=== PATIENT | female | born 1980 | race Caucasian/White ===

== ENCOUNTER 2018-04-29 13:55 | Day surgery (SDC) | payer OTHER, MEDICAID, SELFPAY ==
--- NOTE | 2018-04-29 | PATH_ITS ---
[facility] Accession Number: [id number] . 01 Material submitted: . DUODENUM BIOPSY . 01 Clinical history: . DUODENUM BIOPSY TO R/O CELIAC . 02 Diagnosis: Duodenum, Biopsy: Duodenal mucosa with no diagnostic abnormality. Negative for active inflammation, features of sprue, dysplasia or malignancy. MRV/04/30/2018 . 02 Electronically signed: . Deangelo Valderrama MD, PhD, Pathologist NPI- [id number] . 01 Gross description: . Received one formalin-filled container labeled with the patient's name and labeled duodenum. The specimen consists of a 0.3 cm portion of tissue, entirely submitted in one cassette. ([id number]) /FRR . 02 Pathologist provided ICD-10: R19.7, R10.9 . 02 CPT . 274743 Specimen Comment: A duplicate report has been generated due to demographic updates. Performed at: 01 [facility] [address] [place] [address], [place], [place] [id number] MD Harshil Dinh MD Phone: [phone] Performed at: 02 [facility] [address] [place], [place] [id number] MD Gaye Alvarez MD Phone: [phone]
[2018-04-29 14:44] VITALS: BMI 43.9
[2018-04-29 15:17] VITALS: BP 148/94; PULSE 92; RESP 16; TEMP 36.3; O2SAT 95
[2018-04-29] MEDS: SODIUM CHLORIDE 0.9% 1,000 ML 200 ML IV (15:21)
--- NOTE | 2018-04-29 15:35 | PM.PREOP ---
Pre-operative Note Interval Note Pre-op Check: Yes History & Physical Reviewed by Physician and Yes Exam Performed Changes: No ASA Class (for procedural sedation): III
--- NOTE | 2018-04-29 15:35 | PM.OP.ENDO ---
Operative Date/Time/Diagnoses Date of procedure: 04/29/18 Time of procedure: 15:36 Pre-op diagnosis: See indication and findings Post-op diagnosis: same Procedure & Clinicians Study performed: EGD Same procedure as scheduled: Yes Indications: Poorly controlled GE reflux. Rule out esophagitis. Rule out Rubin's esophagus. Surgeon: Sofia Ramirez Procedure Notes Procedure in detail: After informed consent was obtained the patient was placed in left lateral decubitus position. The video upper scope was placed into the oropharynx with the patient was told in the esophagus. The esophagus stomach and duodenum were carefully examined. On withdrawal, retroflexed view the GE junction was performed. The scope was removed. The patient tolerated the procedure well. Blood loss none Complications none Sedation: Mac by anesthesia Findings 1. Normal GE junction. There was no clear evidence of tongues of abnormal tissue above the top level of the GE folds. There was also no evidence of esophagitis. 2. Normal stomach 3. Normal duodenal bulb and sweep. Biopsies taken to rule out celiac She is actually doing remarkably well using ranitidine 300 mg q.h.s.. This really is cut down on her nocturnal acid breakthrough. She should stay on it for the time being along with omeprazole in the morning and we will touch base with her regarding the biopsies from her duodenum. The she should return to see us in 6 months.
[2018-04-29 16:00] VITALS: BP 106/73; PULSE 95; RESP 23; TEMP 36.3; O2SAT 95
[2018-04-29 16:05] VITALS: BP 117/69; PULSE 86; RESP 15; O2SAT 100
[2018-04-29 16:10] VITALS: BP 122/75; PULSE 87; RESP 17; TEMP 36.4; O2SAT 99
[2018-04-29 16:11] VITALS: BP 115/75; PULSE 89; RESP 20; TEMP 36.6; O2SAT 98
== END 2018-04-29 16:50 | disposition home or self-care (01) ==
PROVIDERS: PCP Nurse Practitioner; Visit Provider Internal Medicine Gastroenterology
PROC: 0DJ08ZZ Inspection of Upper Intestinal Tract, Via Natural or Artificial Opening Endoscopic (ICD-10-PCS; CPT 43235; principal; 2018-04-29 15:00)
DX: K21.9 Gastro-esophageal reflux disease without esophagitis (principal); E11.9 Type 2 diabetes mellitus without complications; I10 Essential (primary) hypertension; F41.9 Anxiety disorder, unspecified; E66.9 Obesity, unspecified; Z79.84 Long term (current) use of oral hypoglycemic drugs; F41.0 Panic disorder [episodic paroxysmal anxiety]; F31.9 Bipolar disorder, unspecified
CPT/HCPCS: 43239; J2250; J2704; J3010

== ENCOUNTER 2021-02-09 18:43 | Emergency (ER) | payer OTHER, MEDICAID, SELFPAY ==
[2021-02-09 19:10] VITALS: BP 157/85; PULSE 110; RESP 20; TEMP 37.2; O2SAT 98; BMI 50.0
[2021-02-09 20:28] VITALS: PULSE 99; RESP 20
[2021-02-09 20:30] VITALS: BP 148/93; PULSE 100; RESP 20
--- NOTE | 2021-02-09 20:38 | ED_ITS ---
HPI - General Adult General Chief complaint: Diabetic Problem Stated complaint: Blood Sugar Out of Control, Running in 300's Time Seen by Provider: 02/09/21 20:01 Mode of arrival: Ambulatory Limitations: no limitations History of Present Illness HPI narrative: 40-year-old female former smoker with history of type 2 diabetes on Victoza and insulin sliding scale presents feeling a bit fatigued and stress due to family issues. Her biggest concern is at her blood sugars which normally run in the 170s to 180s have been in the 300s this afternoon. She denies fever or chills. She denies any chest pain or shortness of breath. She has some mild nausea but denies any vomiting or abdominal pain. She denies dysuria, frequency or urgency. She denies any change in her diabetic regimen or any dietary indiscretions. Related Data Home Medications Medication Instructions Recorded Confirmed Advair Diskus 2 puff INHALATION BID 04/29/18 04/29/18 Chantix 1 mg PO BID 04/29/18 04/29/18 Geodon 20 mg PO DAILY 04/29/18 04/29/18 Humalog U-100 Insulin SUBCUT AC PRN 04/29/18 ProAir HFA puff INHALATION PRN 04/29/18 Victoza 2-Elias 1.8 mg DAILY 04/29/18 04/29/18 metformin 1,000 mg PO BID 04/29/18 04/29/18 zolpidem 10 mg PO BEDTIME PRN 04/29/18 04/29/18 Allergies Allergy/AdvReac Type Severity Reaction Status Date / Time Penicillins Allergy Hives Verified 04/29/18 15:06 Review of Systems Review of Systems Narrative: GENERAL: See HPI HEENT: Denies sinus pain, ear pain, sore throat, difficulty swallowing, dizziness. RESPIRATORY: Denies dyspnea, cough, wheezing, hemoptysis, sputum. CARDIOVASCULAR: Denies chest pain, palpitations, orthopnea, edema, GASTROINTESTINAL: See HPI : Denies dysuria, frequency, incontinence, hematuria, urinary retention. MUSCULOSKELETAL: denies weakness, joint pain, or bony pain SKIN: Denies rash, skin lesions, or other NEUROLOGIC: Denies weakness, headache, numbness, change in speech, confusion, se izures, incoordination. PSYCHIATRIC: No concerning psychosocial issues. 12 point review of systems is negative except for those stated above Patient History Social History household members: none Smoking Status: Former smoker Smoking Status: Former smoker Substance Use Type: does not use Exam Narrative Exam Narrative: GENERAL: [40] year old patient appears stated age. Well- developed patient, in mild distress. HEAD: Atraumatic. Normocephalic. EYES: Pupils equal round and reactive. Extraocular motions intact. No scleral i cterus. No injection or drainage. ENT: Nose without bleeding, purulent drainage. Throat without erythema, tonsillar hypertrophy or exudate. Airway patent. NECK: Trachea midline. Non tender CARDIOVASCULAR: Regular rate and rhythm without murmurs, gallops, or rubs. RESPIRATORY: Clear to auscultation. Breath sounds equal bilaterally. No wheezes, rales, or rhonchi. GASTROINTESTINAL: Soft and nontender EXTREMITIES: No edema or joint tenderness. BACK: Nontender without deformity or crepitance. No flank tenderness. NEURO: AOx3. SKIN: No rash or erythema of visible areas Initial Vital Signs Initial Vital Signs: Vital Signs Temperature 99 F 02/09/21 19:10 Pulse Rate 110 H 02/09/21 19:10 Respiratory Rate 20 02/09/21 19:10 Blood Pressure 157/85 H 02/09/21 19:10 Pulse Oximetry 98 02/09/21 19:10 Course Orders Ordered: ED Orders 02/09/21 20:15 Basic Metabolic Panel Stat Complete Blood Count AUTO DIFF Stat Hemoglobin A1C% w Est Avg Glu Stat 02/09/21 20:41 Urine Microscopic Stat Discontinued Medications Sodium Chloride (Normal Saline 0.9%) 1,000 mls @ 1,000 mls/hr IV BOLUS ONE Stop: 02/09/21 21:40 Last Infusion: 02/09/21 21:45 Dose: 0 mls/hr Documented by: Admin: 02/09/21 20:52 Dose: 1,000 mls/hr Documented by: JACKELIN Vital Signs Vital signs: Vital Signs - 8 hr 02/09/21 20:28 02/09/21 20:30 02/09/21 21:00 Pulse Rate 99 H 100 H 95 H Respiratory Rate 20 20 22 Blood Pressure 148/93 H 143/77 H 02/09/21 21:30 Pulse Rate 96 H Respiratory Rate 23 Blood Pressure 145/80 H Medical Decision Making Lab Data Result diagrams: 02/09/21 20:15 02/09/21 20:15 Labs: Lab Results 02/09/21 02/09/21 02/09/21 Range/Units 20:15 20:15 20:15 WBC 11.6 H (4.5-11.0) X10^3/uL RBC 4.75 (4.0-5.2) X10^6/uL Hgb 14.7 (12.0-16.0) g/dL Hct 43.5 (36-46) % MCV 91.5 (80-100) fL MCH 31.0 (26-34) PG MCHC 33.9 (30-36) % RDW 13.2 (11.6-14.8) % Plt Count 353 (150-400) X10^3/uL Neut % (Auto) 66.7 (50-75) % Lymph % (Auto) 20.1 L (25-40) % [place] % (Auto) 8.0 (3-14) % Eos % (Auto) 4.7 H (2-4) % Baso % (Auto) 0.5 (0-2) % Neut # (Auto) 7800 H (8401-7265) /uL Lymph # (Auto) 2300 (4757-4073) /uL [place] # (Auto) 900 (0-900) /uL Eos # (Auto) 500 H (0-450) /uL Baso # (Auto) 100 (0-100) /uL Sodium 137 (137-145) mmol/L Potassium 4.0 (3.4-5.1) mmol/L Chloride 104 (98-107) mmol/L Carbon Dioxide 27 (22-32) mmol/L BUN 15 (7-17) mg/dL Creatinine 0.59 (0.52-1.04) mg/dL Estimated GFR > 60.0 (>60) mL/min BUN/Creatinine Ratio 25.4 H (6-22) Glucose 161 H (70-100) mg/dL Hemoglobin A1c 6.8 H (4.0-6.0) % Calcium 9.1 (8.4-10.2) mg/dL Urine RBC (0-5/HPF) Urine WBC (0-5/HPF) Ur Squamous Epith Cells (0-5/HPF) Calcium Oxalate Crystal Urine Bacteria (None) Ur Culture Indicated? 02/09/21 Range/Units 20:41 WBC (4.5-11.0) X10^3/uL RBC (4.0-5.2) X10^6/uL Hgb (12.0-16.0) g/dL Hct (36-46) % MCV (80-100) fL MCH (26-34) PG MCHC (30-36) % RDW (11.6-14.8) % Plt Count (150-400) X10^3/uL Neut % (Auto) (50-75) % Lymph % (Auto) (25-40) % [place] % (Auto) (3-14) % Eos % (Auto) (2-4) % Baso % (Auto) (0-2) % Neut # (Auto) (7512-3852) /uL Lymph # (Auto) (0587-1848) /uL [place] # (Auto) (0-900) /uL Eos # (Auto) (0-450) /uL Baso # (Auto) (0-100) /uL Sodium (137-145) mmol/L Potassium (3.4-5.1) mmol/L Chloride (98-107) mmol/L Carbon Dioxide (22-32) mmol/L BUN (7-17) mg/dL Creatinine (0.52-1.04) mg/dL Estimated GFR (>60) mL/min BUN/Creatinine Ratio (6-22) Glucose (70-100) mg/dL Hemoglobin A1c (4.0-6.0) % Calcium (8.4-10.2) mg/dL Urine RBC 0-1/hpf (0-5/HPF) Urine WBC 0-1/hpf (0-5/HPF) Ur Squamous Epith Cells 1-5 /hpf (0-5/HPF) Calcium Oxalate Crystal Moderate H Urine Bacteria Occasional (0-1) (None) Ur Culture Indicated? Cult not indicated Point of Care Testing Glucose POC 176 Urine Dip Bedside Urine Glucose 100 mg/dl Bedside Urine Bilirubin - Negative Bedside Urine Ketone - Negative Urine Specific [place] 1.030 Bedside Urine Occult Blood +/- Bedside Urine pH 6 Bedside Urine Protein - Negative Bedside Urine Urobilinogen - Negative Bedside Urine Nitrite - Negative Bedside Urine Leukocytes - Negative Esterase Point of care testing: Point of Care Testing Glucose POC 176 Urine Dip Bedside Urine Glucose 100 mg/dl Bedside Urine Bilirubin - Negative Bedside Urine Ketone - Negative Urine Specific [place] 1.030 Bedside Urine Occult Blood +/- Bedside Urine pH 6 Bedside Urine Protein - Negative Bedside Urine Urobilinogen - Negative Bedside Urine Nitrite - Negative Bedside Urine Leukocytes - Negative Esterase MDM Narrative Medical decision making narrative: Patient with very reassuring physical exam and labs. Her blood sugars are in the 160s and 170s. She is well hydrated, feeling better after fluids. Tolerating orals. She has been given extensive return precautions and questions have been answered to her apparent satisfaction Discharge Plan Departure Patient Disposition: Home Clinical Impression: Acute hyperglycemia Instructions: DI for Diabetes Type 2 Activity Restrictions/Additional Instructions: *You have been diagnosed with [hyperglycemia] *What to do: *Please continue to take your regular medications as directed. [ ] New medication prescriptions sent to your pharmacy: [ ] [ ] New medication written as a paper prescription [x ] No new medications given *Please follow up with your primary care provider in 2-3 days, call for an appointment. Let them know you were seen in the Emergency Department and that we ask that you be seen in follow up. We will electronically transmit a record of today's note if your PCP is in our system *If you do not have a primary care provider please contact the [facility] Resource line at [phone]. They will ask some questions about your medical history and help get you set up with a doctor in the community. *Return to Emergency Department if you should have any new, worsening or concerning symptoms, such as [fever greater than 101 F, shaking chills, worsening pain, persistent vomiting or other bothersome symptoms] Prescriptions: No Action Advair Diskus 2 puff Inhalation BID RF: 0 Chantix 1 mg PO BID RF: 0 Geodon 20 mg PO DAILY RF: 0 Humalog U-100 Insulin subcut AC PRN (Reason: Hyperglycemia) RF: 0 ProAir HFA Inhalation PRN (Reason: Dyspnea) RF: 0 Victoza 2-Elias 1.8 mg DAILY RF: 0 metformin 1,000 mg PO BID RF: 0 zolpidem 10 mg PO BEDTIME PRN (Reason: Insomnia) RF: 0 Referrals: Sadie Real PA-C [Primary Care Provider] -
[2021-02-09 20:47] LABS: Add Manual Diff / Slide Review NO; Basophils Absolute Auto 100 /uL (0-100); Basophils Percent Auto 0.5 % (0-2); Eosinophils Absolute Auto 500 /uL (0-450); Eosinophils Percent Auto 4.7 % (2-4); Hematocrit 43.5 % (36-46); Hemoglobin 14.7 g/dL (12.0-16.0); Lymphocytes Absolute Auto 2300 /uL (1100-4500); Lymphocytes Percent Auto 20.1 % (25-40); Mean Corpuscular HGB Conc 33.9 % (30-36); Mean Corpuscular Volume 91.5 fL (80-100); Monocytes Absolute Auto 900 /uL (0-900); Neutrophils Absolute Auto 7800 /uL (1500-7000); Neutrophils Percent Auto 66.7 % (50-75); Platelet Count 353 X10^3/uL (150-400); Red Blood Cell Count 4.75 X10^6/uL (4.0-5.2); Red Cell Distribution Width 13.2 % (11.6-14.8); White Blood Cell Count 11.6 X10^3/uL (4.5-11.0)
[2021-02-09 20:52] LABS: Bacteria Urine Occasional (0-1); RBC Urine 0-1/HPF (0-5/HPF); Squamous Epithelial Cell Urine 1-5 /HPF (0-5/HPF); WBC Urine 0-1/HPF (0-5/HPF)
[2021-02-09] MEDS: SODIUM CHLORIDE 0.9% 1,000 ML 1000 ML IV (20:52)
[2021-02-09 20:53] LABS: Calcium Oxalate Crystals Urine Moderate; Culture Indicated Urine Cult Not Indicated
[2021-02-09 20:53] LABS: BUN Creatinine Ratio 25.4 (6-22); Blood Urea Nitrogen 15 mg/dL (7-17); Calcium 9.1 mg/dL (8.4-10.2); Carbon Dioxide 27 mmol/L (22-32); Chloride 104 mmol/L (98-107); Estimated Glomerular Filt Rate > 60.0 mL/min (>60); Glucose 161 mg/dL (70-100); HEMOLYSIS < 15 (0-50); Sodium 137 mmol/L (137-145)
[2021-02-09 21:00] VITALS: BP 143/77; PULSE 95; RESP 22
[2021-02-09 21:02] LABS: Hemoglobin A1C% w Est Avg Glu 6.8 % (4.0-6.0)
[2021-02-09 21:30] VITALS: BP 145/80; PULSE 96; RESP 23
== END 2021-02-09 21:51 | disposition home or self-care (01) ==
PROVIDERS: Emergency Provider Emergency Medicine; PCP Physician Assistant
DX: E11.65 Type 2 diabetes mellitus with hyperglycemia (principal); R11.0 Nausea
CPT/HCPCS: 80048; 81003; 81015; 82962; 83036; 85025; 96360; 99283; 99284

== ENCOUNTER 2021-08-05 20:43 | Emergency (ER) | payer OTHER, MEDICAID, SELFPAY ==
[2021-08-05 20:50] VITALS: BP 156/91; PULSE 112; RESP 22; TEMP 36.9; O2SAT 97
--- NOTE | 2021-08-05 20:59 | DI.US.S_ITS ---
PROCEDURE: US OB LIMITED INDICATIONS: SEVERE RLQ PAIN OUTSIDE/PRIOR DATING DATA: Last menstrual period (LMP): Unknown LMP-based estimated date of delivery (OLIVIA): Unknown. First dating scan (date and location): 08/05/2021. Estimated date of delivery (OLIVIA) from first dating scan: 01/03/2022. The calculations are made using the ultrasound OLIVIA of today. TECHNIQUE: Real-time scanning was performed of the fetus, with image documentation and biometric measurements. Endovaginal scanning: Not performed COMPARISON: None. FINDINGS: General: A single living intrauterine gestation is present. Presentation: Cephalic. Placenta: Placental position is anterior, without previa. Amniotic fluid index: 9.6 cm, normal range is 5-24 cm. Single deepest vertical pocket is 3.6 cm. heart rate: 152 beats per minute. Maternal cervical canal: 3.8 cm long. Normal lower limit is 2.5 cm. biometrics: Biparietal diameter: 4.0 cm, 18 weeks 1 day Head circumference: 15.1 cm, 18 weeks 1 day Abdominal circumference: 13.7 cm, 19 weeks 1 day Femur length: 2.7 cm, 18 weeks 1 day Clinically estimated gestational age: 18 weeks 3 days Composite gestational age from present scan: 18 weeks 3 days Estimated weight and percentile: Not calculated. Today is the 1st study. Other: Not applicable. IMPRESSION: Living 2nd trimester intrauterine with no sonographic evidence of complications. We strive to produce accurate, complete, and clear reports of imaging services. To assist us in improving patient care, this report was composed using standard report templates and voice recognition software. Therefore, it may contain abnormal punctuation, insertions and/or omissions. Occasional wrong-word or sound-alike substitutions may occur. Though we review the report and make efforts to correct it, we do recommend that the report be read carefully in proper context to recognize any text inaccuracies. Dictated by: Abundio Gates M.D. on 08/05/2021 at 22:10 Approved by: Abundio Gates M.D. on 08/05/2021 at 22:14
--- NOTE | 2021-08-05 21:03 | ED.ABDPAIN ---
HPI - Abdominal Pain General Chief Complaint: OB/Uterine Contractions Stated Complaint: 18 weeks preg. sharp pains on rt. lower abd. Time Seen by Provider: 08/05/21 20:50 Source: patient Mode of arrival: Ambulatory History of Present Illness HPI narrative: 41-year-old female daily smoker with history of insulin-dependent diabetes is a at 18 weeks and 2 days managed by [facility] at the [facility] and presents with a chief complaint of a relatively sudden onset right lower quadrant pain that started at 5:00 p.m. tonight. She states that she was grocery shopping but denies any heavy lifting, twisting or bending. She denies any obvious provocation, palliation or radiation. She denies fever chills nor nausea, vomiting or diarrhea. She denies diarrhea or constipation. She denies hematuria, dysuria, frequency or urgency. She has had no vaginal bleeding, discharge or leakage of fluid. Related Data Home Medications Medication Instructions Recorded Confirmed Advair Diskus 2 puff INHALATION BID 04/29/18 04/29/18 Chantix 1 mg PO BID 04/29/18 04/29/18 Geodon 20 mg PO DAILY 04/29/18 04/29/18 Humalog U-100 Insulin SUBCUT AC PRN 04/29/18 ProAir HFA puff INHALATION PRN 04/29/18 Victoza 2-Elias 1.8 mg DAILY 04/29/18 04/29/18 metformin 1,000 mg PO BID 04/29/18 04/29/18 zolpidem 10 mg PO BEDTIME PRN 04/29/18 04/29/18 Allergies Allergy/AdvReac Type Severity Reaction Status Date / Time Penicillins Allergy Hives Verified 04/29/18 15:06 Review of Systems Review of Systems Narrative: GENERAL: Denies chills, fatigue, malaise, fever, sweats. HEENT: Denies sinus pain, ear pain, sore throat, difficulty swallowing, dizziness. RESPIRATORY: Denies dyspnea, cough, wheezing, hemoptysis, sputum. CARDIOVASCULAR: Denies chest pain, palpitations, orthopnea, edema, GASTROINTESTINAL: See HPI : See HPI MUSCULOSKELETAL: denies weakness, joint pain, or bony pain SKIN: Denies rash, skin lesions, or other NEUROLOGIC: Denies weakness, headache, numbness, change in speech, confusion, seizures, incoordination. PSYCHIATRIC: No concerning psychosocial issues. 12 point review of systems is negative except for those stated above Patient History Social History household members: none Smoking Status: Current every day smoker Smoking Status: Current every day smoker Substance Use Type: does not use Exam Narrative Exam Narrative: GENERAL: [41] year old patient appears stated age. Well-developed patient, in mild distress. HEAD: Atraumatic. Normocephalic. EYES: Pupils equal round and reactive. Extraocular motions intact. No scleral icterus. No injection or drainage. ENT: Nose without bleeding, purulent drainage. Throat without erythema, tonsillar hypertrophy or exudate. Airway patent. NECK: Trachea midline. Non tender CARDIOVASCULAR: Regular rate and rhythm without murmurs, gallops, or rubs. RESPIRATORY: Clear to auscultation. Breath sounds equal bilaterally. No wheezes, rales, or rhonchi. GASTROINTESTINAL: Abdomen soft, tender in the RLQ,no guarding. nondistended. EXTREMITIES: No edema or joint tenderness. BACK: Nontender without deformity or crepitance. No flank tenderness. NEURO: AOx3. SKIN: No rash or erythema of visible areas Initial Vital Signs Initial Vital Signs: Vital Signs Temperature 98.5 F 08/05/21 20:50 Pulse Rate 112 H 08/05/21 20:50 Respiratory Rate 22 08/05/21 20:50 Blood Pressure 156/91 H 08/05/21 20:50 Pulse Oximetry 97 08/05/21 20:50 Course Orders Ordered: ED Orders 08/05/21 20:59 US OB limited Stat 08/05/21 21:00 Complete Blood Count AUTO DIFF Stat Comprehensive Metabolic Panel Stat 08/05/21 21:06 Urine Microscopic Stat Vital Signs Vital signs: Vital Signs - 8 hr 08/05/21 20:50 08/05/21 21:05 08/05/21 21:07 Temperature 98.5 F Pulse Rate 112 H 106 H 102 H Respiratory Rate 22 22 Blood Pressure 156/91 H 141/65 H Pulse Oximetry 97 98 97 08/05/21 21:30 08/05/21 22:00 Temperature Pulse Rate 94 H 87 Respiratory Rate 22 22 Blood Pressure 136/65 148/65 H Pulse Oximetry 96 96 MDM - Abdominal Pain Lab Data Result diagrams: 08/05/21 20:56 08/05/21 20:56 Labs: Lab Results 08/05/21 08/05/21 08/05/21 Range/Units 20:56 20:56 21:06 WBC 13.9 H (4.5-11.0) X10^3/uL RBC 4.13 (4.0-5.2) X10^6/uL Hgb 12.6 (12.0-16.0) g/dL Hct 36.8 (36-46) % MCV 89.1 (80-100) fL MCH 30.5 (26-34) PG MCHC 34.2 (30-36) % RDW 13.7 (11.6-14.8) % Plt Count 301 (150-400) X10^3/uL Neut % (Auto) 78.7 H (50-75) % Lymph % (Auto) 13.8 L (25-40) % [place] % (Auto) 4.5 (3-14) % Eos % (Auto) 2.6 (2-4) % Baso % (Auto) 0.4 (0-2) % Neut # (Auto) 41558 H (3802-7253) /uL Lymph # (Auto) 1900 (4086-8633) /uL [place] # (Auto) 600 (0-900) /uL Eos # (Auto) 400 (0-450) /uL Baso # (Auto) 100 (0-100) /uL Sodium 133 L (137-145) mmol/L Potassium 3.4 (3.4-5.1) mmol/L Chloride 102 (98-107) mmol/L Carbon Dioxide 27 (22-32) mmol/L BUN 8 (7-17) mg/dL Creatinine 0.48 L (0.52-1.04) mg/dL Estimated GFR > 60.0 (>60) mL/min BUN/Creatinine Ratio 16.7 (6-22) Glucose 138 H (70-100) mg/dL Calcium 9.5 (8.4-10.2) mg/dL Total Bilirubin 0.3 (0.2-1.3) mg/dL AST 19 (14-36) IU/L ALT 14 (<35) IU/L Alkaline Phosphatase 56 (38-126) U/L Total Protein 6.9 (6.3-8.2) g/dL Albumin 3.8 (3.5-5.0) g/dL Globulin 3.1 (1.7-4.1) g/dL Albumin/Globulin Ratio 1.2 (1.0-2.8) Urine RBC None seen (0-5/HPF) Urine WBC None seen (0-5/HPF) Ur Squamous Epith Cells 0-1 /hpf (0-5/HPF) Urine Bacteria None seen (None) Ur Culture Indicated? Cult not indicated Point of care testing: Urine Dip Bedside Urine Glucose Negative Bedside Urine Bilirubin - Negative Bedside Urine Ketone +/- 5 Urine Specific [place] 1.015 Bedside Urine Occult Blood - Negative Bedside Urine pH 6.5 Bedside Urine Protein - Negative Bedside Urine Urobilinogen - Negative Bedside Urine Nitrite - Negative Bedside Urine Leukocytes - Negative Esterase MDM Narrative Medical decision making narrative: Multiple etiologies for patient's symptoms considered including: issues, ovarian trouble, kidney stone (less likely given lack of hematuria or imaging abnormality), appendix (less likely given sudden onset, lack of fever, nausea, reproduced pain, etc). Patient's symptoms improved over duration of stay with above-stated therapies. Findings and discharge diagnosis discussed with patient/family followed by verbalization of understanding Return precautions discussed with patient/family whom verbalize understanding. Discharge Plan Departure Patient Disposition: Home Clinical Impression: Acute right lower quadrant pain Instructions: DI for Abdominal Pain-Adult Activity Restrictions/Additional Instructions: *You have been diagnosed with [Right lower quadrant pain. Your history and physical exam are very reassuring, especially when combined with normal urine, blood work and ultrasound. There is no evidence of a related abnormality, kidney stone or urine infection. As we discussed though unlikely, this could be early appendicitis but it would be an atypical presentation. ] *What to do: *Please continue to take your regular medications as directed. [ ] New medication prescriptions sent to your pharmacy: [ ] [ ] New medication written as a paper prescription [ ] No new medications given *Please follow up with your OB care provider in 2-3 days, call for an appointment. Let them know you were seen in the Emergency Department and that we ask that you be seen in follow up. We will electronically transmit a record of today's note if your doctor is in our system *Return to Emergency Department if you should have any new, worsening or concerning symptoms, such as [fever greater than 101 F, shaking chills, worsening pain, persistent vomiting or other bothersome symptoms] Prescriptions: No Action Advair Diskus 2 puff Inhalation BID 0RF Label Comments: 50/500 Chantix 1 mg PO BID 0RF Geodon 20 mg PO DAILY 0RF Humalog U-100 Insulin subcut AC PRN (Reason: Hyperglycemia) 0RF Label Comments: Sliding scale based on CBG ProAir HFA Inhalation PRN (Reason: Dyspnea) 0RF Victoza 2-Elias 1.8 mg DAILY 0RF metformin 1,000 mg PO BID 0RF zolpidem 10 mg PO BEDTIME PRN (Reason: Insomnia) 0RF Referrals: Sadie Real PA-C [Primary Care Provider] -
[2021-08-05 21:05] VITALS: PULSE 106; O2SAT 98
[2021-08-05 21:07] VITALS: BP 141/65; PULSE 102; RESP 22; O2SAT 97
[2021-08-05 21:20] LABS: Add Manual Diff / Slide Review NO; Basophils Absolute Auto 100 /uL (0-100); Basophils Percent Auto 0.4 % (0-2); Eosinophils Absolute Auto 400 /uL (0-450); Eosinophils Percent Auto 2.6 % (2-4); Hematocrit 36.8 % (36-46); Hemoglobin 12.6 g/dL (12.0-16.0); Lymphocytes Absolute Auto 1900 /uL (1100-4500); Lymphocytes Percent Auto 13.8 % (25-40); Mean Corpuscular HGB Conc 34.2 % (30-36); Mean Corpuscular Hemoglobin 30.5 PG (26-34); Mean Corpuscular Volume 89.1 fL (80-100); Monocytes Absolute Auto 600 /uL (0-900); Monocytes Percent Auto 4.5 % (3-14); Neutrophils Absolute Auto 11000 /uL (1500-7000); Neutrophils Percent Auto 78.7 % (50-75); Platelet Count 301 X10^3/uL (150-400); Red Blood Cell Count 4.13 X10^6/uL (4.0-5.2); Red Cell Distribution Width 13.7 % (11.6-14.8); White Blood Cell Count 13.9 X10^3/uL (4.5-11.0)
[2021-08-05 21:25] LABS: Alanine Aminotransferase 14 IU/L (<35); Albumin 3.8 g/dL (3.5-5.0); Albumin Globulin Ratio 1.2 (1.0-2.8); Alkaline Phosphatase 56 U/L (38-126); Aspartate Aminotransferase 19 IU/L (14-36); BUN Creatinine Ratio 16.7 (6-22); Bilirubin Total 0.3 mg/dL (0.2-1.3); Blood Urea Nitrogen 8 mg/dL (7-17); Calcium 9.5 mg/dL (8.4-10.2); Carbon Dioxide 27 mmol/L (22-32); Chloride 102 mmol/L (98-107); Estimated Glomerular Filt Rate > 60.0 mL/min (>60); Globulin 3.1 g/dL (1.7-4.1); Glucose 138 mg/dL (70-100); HEMOLYSIS < 15 (0-50); Potassium 3.4 mmol/L (3.4-5.1); Sodium 133 mmol/L (137-145); Total Protein 6.9 g/dL (6.3-8.2)
[2021-08-05 21:30] VITALS: BP 136/65; PULSE 94; RESP 22; O2SAT 96
[2021-08-05 21:47] LABS: Bacteria Urine None Seen; Culture Indicated Urine Cult Not Indicated; RBC Urine None Seen (0-5/HPF); Squamous Epithelial Cell Urine 0-1 /HPF (0-5/HPF); WBC Urine None Seen (0-5/HPF)
[2021-08-05 22:00] VITALS: BP 148/65; PULSE 87; RESP 22; O2SAT 96
== END 2021-08-05 22:38 | disposition home or self-care (01) ==
PROVIDERS: Emergency Provider Emergency Medicine; PCP Physician Assistant
DX: O26.892 Other specified pregnancy related conditions, second trimester (principal); R10.31 Right lower quadrant pain; Z3A.18 18 weeks gestation of pregnancy
CPT/HCPCS: 36415; 76815; 80053; 81003; 81015; 85025; 99284